=== PATIENT | female | born 1950 | race Caucasian/White ===

== ENCOUNTER 2023-05-29 09:23 | Outpatient (OUT) | payer MEDICARE, SELFPAY ==
[2023-05-29 10:13] LABS: Basophils Absolute Auto 0.1 10^3/uL (0.0-0.1); Basophils Percent Auto 0.8 % (0.2-2.0); Eosinophils Absolute Auto 0.1 10^3/uL (0.0-0.7); Eosinophils Percent Auto 1.3 % (0.9-7.0); Hematocrit 42.4 % (36.0-48.0); Hemoglobin 13.8 g/dL (12.0-16.0); Immature Granulocytes Abs Auto 0.02 10^3/uL (0.00-0.03); Immature Granulocytes Pct Auto 0.2 % (0.0-0.5); Lymphocytes Absolute Auto 4.3 10^3/uL (1.2-3.8); Lymphocytes Percent Auto 41.5 % (20.5-60.0); Mean Corpuscular HGB Conc 32.5 g/dL (29.9-35.2); Mean Corpuscular Hemoglobin 30.3 pg (26.7-34.0); Mean Corpuscular Volume 93.2 fL (81.0-99.0); Mean Platelet Volume 10.1 fL (9.5-13.5); Monocytes Absolute Auto 0.5 10^3/uL (0.3-0.8); Monocytes Percent Auto 4.3 % (1.7-12.0); Neutrophils Absolute Auto 5.4 10^3/uL (1.4-6.5); Neutrophils Percent Auto 51.9 % (43.0-75.0); Platelet Count 304 10^3/uL (150-450); Red Blood Count 4.55 10^6/uL (4.20-5.40); Red Cell Distribution Width 11.5 % (11.0-15.0); White Blood Count 10.4 10^3/uL (4.0-11.0)
[2023-05-29 10:57] LABS: Estimated Average Glucose 120 mg/dL; Glycohemoglobin A1C 5.8 % (4.5-6.2)
[2023-05-29 11:17] LABS: Alanine Aminotransferase 44 U/L (14-59); Alkaline Phosphatase 92 U/L (46-116); Anion Gap 11.3; Aspartate Amino Transferase 22 U/L (15-37); BUN Creatinine Ratio 17.1; Bilirubin Total 0.5 mg/dL (0.2-1.0); Carbon Dioxide 31.5 mmol/L (21.0-32.0); Chloride 104 mmol/L (98-107); Chol HDL Ratio 2.4; Cholesterol 166 mg/dL (<=200); Estimated GFR (African America >60 (>=60); Estimated GFR (Non-African Ame 52 (>=60); Free T3 2.66 pg/mL (2.18-3.98); Globulin 3.9 g/dL; Glucose 105 mg/dL (74-106); HDL Cholesterol 69 mg/dL (40-60); Potassium 3.8 mmol/L (3.5-5.1); Sodium 143 mmol/L (136-145); Thyroid Stimulating Hormone 1.199 uIU/mL (0.358-3.740); Total Protein 7.9 g/dL (6.4-8.2); Triglycerides 96 mg/dL (<=150); VLDL CHOLESTEROL 19.2 mg/dL
[2023-05-30 13:08] LABS: Insulin 12.6 uIU/mL (2.6-24.9)
== END 2023-05-29 09:24 | disposition home or self-care (01) ==
LOC: LAB 09:45
PROVIDERS: PCP Nurse Practitioner Family; Visit Provider Nurse Practitioner Family
DX: I10 Essential (primary) hypertension (principal)
CPT/HCPCS: 36415; 80053; 80061; 82306; 83036; 83525; 84436; 84443; 84481; 85025

== ENCOUNTER 2024-04-04 07:22 | Outpatient (OUT) | payer MEDICARE, SELFPAY ==
--- NOTE | 2024-04-04 07:26 | MM_ITS ---
Patient Name: ALAN RAO MR#: [id number] : 1950 Exam Date: 04/04/2024 Ordering Doctor: KEN HOFF CNP RADIOLOGY REPORT PROCEDURE: MM TOMOSYNTHESIS SCREENING BI COMPARISON: MG MAMM SCREEN GASTON W CAD, 09/25/2020. MG MAMM SCREEN 3D GASTON CAD, 01/27/2022. INDICATIONS: screening Calculator Name NCI Breast Cancer Risk Assessment Tool 5 Year Breast Cancer Risk 2.30% Lifetime Breast Cancer Risk 6.30% Personal Breast Cancer No Personal Ovarian Cancer No Treatments None Family Cancers Grandfather-maternal with lung & esophageal cancer at age 40. LOCATION: [facility] BREAST COMPOSITION: The breasts are heterogeneously dense,which may obscure small masses. FINDINGS: DIAGNOSTIC CATEGORY 2--BENIGN FINDING. NO CHANGE FROM COMPARISON. Scattered benign-appearing nodules are present. Scattered benign-appearing calcifications are present. Scattered benign-appearing lymph nodes are present. RIGHT BREAST: No significant suspicious finding. LEFT BREAST: No significant suspicious finding. RECOMMENDATIONS: ROUTINE MAMMOGRAM AND CLINICAL EVALUATION IN 12 MONTHS. PLEASE NOTE: A NORMAL MAMMOGRAM DOES NOT EXCLUDE THE POSSIBILITY OF BREAST CANCER. A CLINICALLY SUSPICIOUS PALPABLE LUMP SHOULD BE BIOPSIED. Dictated by: Erick Dominguez MD on 04/04/2024 at 08:43 Approved by: Erick Dominguez MD on 04/04/2024 at 08:45
== END 2024-04-04 07:23 | disposition home or self-care (01) ==
LOC: MAMMO 07:22
PROVIDERS: PCP Nurse Practitioner Family; Visit Provider Nurse Practitioner Family
DX: Z12.31 Encounter for screening mammogram for malignant neoplasm of breast (principal); Z80.1 Family history of malignant neoplasm of trachea, bronchus and lung; Z80.0 Family history of malignant neoplasm of digestive organs
CPT/HCPCS: 77063; 77067

== ENCOUNTER 2024-06-14 08:40 | Outpatient (OUT) | payer MEDICARE, SELFPAY ==
--- OUTSIDE RECORDS SUMMARY | 2024-06-14 09:02 | XMS_ITS | CCD ---
Author Organization [facility] Care Team Providers Care Chief Pharmacist Name Role Phone DR JOANNE WOO Attending Unavailable AMNA, DR RUBIO Consulting Unavailable DR JOANNE WOO Primary Care Unavailable DR JOANNE WOO Admitting Unavailable MARIO, DR RIOS Daily Consulting Unavailable KEN HOFF Attending Unavailable KEN HOFF Consulting Unavailable AMNA, DR RUBIO Primary Care Unavailable KEN HOFF Admitting Unavailable KAREEM BAUTISTA Attending Unavailable Problems Active Problems Problem Classification Problem Date Documented Da te Episodic/Chronic Diabetes mellitus without complication (1 source) Other abnormal glucose; Translations: [OTHER ABNORMAL GLUCOSE] Onset: 07-02-2022 Episodic Disorders of lipid metabolism (2 sources) Mixed hyperlipidemia; Translations: [Hyperlipidemia, unspecified] Onset: 07-02-2022 Chronic Essential hypertension (4 sources) Essential (primary) hypertension; Translations: [ESSENTIAL PRIMARY HYPERTENSION] Onset: 2022 Chronic Past or Other Problems Problem Classification Problem Date Documented Da te Episodic/Chronic Other screening for suspected conditions (not mental disorders or infectious disease) (4 sources) Encounter for screening mammogram for malignant neoplasm of breast; Translations: [ENC SCR MAMMO MALIG NEOPLASM BREAST] Onset: 01-27-2022 Episodic Residual codes; unclassified (1 source) Family history of malignant neoplasm of trachea, bronchus and lung; Translations: [FAM HX MALIG NEOPLSM TRACH BRON LNG] Onset: 01-29-2022 Episodic Residual codes; unclassified (1 source) Family history of malignant neoplasm of digestive organs; Translations: [FAM HX MALIG NEOPLASM DIGESTIV ORGN] Onset: 01-29-2022 Episodic Results Test Name Value Interpretation Reference Range Facility CBC AUTO DIFFon 2022 BASO # 0.1 103/ul Normal 0.0-0.1 [facility] Comment on above: Performed By: #### C BC #### [facility] [address] [place] [address] Dr. Jen Spear Basophils/100 WBC (Bld) 0.9 % Normal 0.2-2.0 [facility] Comment on above: Performed By: #### C BC #### [facility] [address] [place] [address] Dr. Jen Spear EO # 0.1 103/ul Normal 0.0-0.7 [facility] Comment on above: Performed By: #### C BC #### [facility] [address] [place] [address] Dr. Jen Spear Eosinophils/100 WBC (Bld) 1.3 % Normal 0.9-7.0 [facility] Comment on above: Performed By: #### C BC #### [facility] [address] [place] [address] Dr. Jen Spear Erythrocyte distribution width (RBC) [Ratio] 11.6 % Normal 11.0-15.0 [facility] Comment on above: Performed By: #### C BC #### [facility] [address] [place] [address] Dr. Jen Spear Hematocrit (Bld) [Volume fraction] 42.0 % Normal 36.0-48.0 [facility] Comment on above: Performed By: #### C BC #### [facility] [address] [place] [address] Dr. Jen Spear Hemoglobin (Bld) [Mass/Vol] 14.2 g/dL Normal 12.0-16.0 [facility] Comment on above: Performed By: #### C BC #### [facility] [address] [place] [address] Dr. Jen Spear IG # 0.03 10e3/ul Normal 0.00-0.03 [facility] Comment on above: Performed By: #### C BC #### [facility] [address] [place] [address] Dr. Jen Spear IG % 0.3 % Normal 0.0-0.5 [facility] Comment on above: Performed By: #### C BC #### [facility] [address] [place] [address] Dr. Jen Spear LYMPH # 4.1 103/ul Critically high 1.2-3.[address] [facility] Comment on above: Performed By: #### C BC #### [facility] [address] [place] [address] Dr. Jen Spear Lymphocytes/100 WBC (Bld) 44.7 % Normal 20.5-60.0 [facility] Comment on above: Performed By: #### C BC #### [facility] [address] [place] [address] Dr. Jen Spear MANUAL DIFF REQ NO Normal [facility] Comment on above: Performed By: #### C BC #### [facility] [address] [place] [address] Dr. Jen Spear MCH (RBC) [Entitic mass] 31.5 pg Normal 26.7-34.0 [facility] Comment on above: Performed By: #### C BC #### [facility] [address] [place] [address] Dr. Jen Spear MCHC (RBC) [Mass/Vol] 33.8 g/dL Normal 29.9-35.2 [facility] Comment on above: Performed By: #### C BC #### [facility] [address] [place] [address] Dr. Jen Spear MCV (RBC) [Entitic vol] 93.1 fL Normal 81.0-99.0 [facility] Comment on above: Performed By: #### C BC #### [facility] [address] [place] [address] Dr. Jen Spear MONO # 0.5 103/ul Normal 0.3-0.8 [facility] Comment on above: Performed By: #### C BC #### [facility] [address] [place] [address] Dr. Jen Spear Monocytes/100 WBC (Bld) 5.3 % Normal 1.7-12.0 [facility] Comment on above: Performed By: #### C BC #### [facility] [address] [place] [address] Dr. Jen Spear NEUT # 4.4 103/ul Normal 1.4-6.5 [facility] Comment on above: Performed By: #### C BC #### [facility] [address] [place] [address] Dr. Jen Spear Neutrophils/100 WBC (Bld) 47.5 % Normal 43.0-75.0 [facility] Comment on above: Performed By: #### C BC #### [facility] [address] [place] [address] Dr. Jen Spear Platelet mean volume (Bld) [Entitic vol] 10.2 fL Normal 9.5-13.5 [facility] Comment on above: Performed By: #### C BC #### [facility] [address] [place] [address] Dr. Jen Spear PLT 280 103/ul Normal 150-450 [facility] Comment on above: Performed By: #### C BC #### [facility] [address] [place] [address] Dr. Jen Spear RBC 4.51 106/ul Normal 4.20-5.40 [facility] Comment on above: Performed By: #### C BC #### [facility] [address] [place] [address] Dr. Jen Spear WBC 9.2 103/ul Normal 4.0-11.0 [facility] Comment on above: Performed By: #### C BC #### [facility] [address] [place] [address] Dr. Jen Spear GLYCOHEMOGLOBIN A1Con 2021 ADA RECOMMENDATION SEE BELOW Normal [facility] Comment on above: Result Comment: ADA RECOMMENDED LIMIT 4.0 - 6.0 ADA THERAPEUTIC TARGET < 7.0 ACTION SUGGESTED > 7.0 Performed By: #### A 1C #### [facility] [address] [place] [address] Dr. Jen Spear Glucose [Mass/Vol] 123 mg/dL Normal [facility] Comment on above: Performed By: #### A 1C #### [facility] [address] [place] [address] Dr. Jen Spear HbA1c (Bld) [Mass fraction] 5.9 % Normal 4.5-6.2 [facility] Comment on above: Performed By: #### A 1C #### [facility] [address] [address] [address] Jen Spear LIPID PROFILEon 2022 CHOL-HDL RATIO NORM SEE BELOW Normal [facility] Comment on above: Result Comment: 3.3 - 4.4 LOW RISK 4.4 - 7.1 AVERAGE RISK 7.1 - 11.0 MODERATE RISK >11.0 HIGH RISK Performed By: #### L IPID, CMP #### [facility] [address] [address] [address] Jen Spear Cholesterol [Mass/Vol] 182 mg/dL Normal <=200 [facility] Comment on above: Performed By: #### L IPID, CMP #### [facility] [address] [address] [address] Jen Spear Cholesterol in HDL [Mass/Vol] 64 mg/dL Critically high 40-60 [facility] Comment on above: Performed By: #### L IPID, CMP #### [facility] [address] [address] [address] Jen Spear Cholesterol in LDL [Mass/Vol] 89.4 mg/dL Normal [facility] Comment on above: Performed By: #### L IPID, CMP #### [facility] [address] [address] [address] Jne Spear Cholesterol.total/Cho lesterol in HDL [Mass ratio] 2.8 {ratio} Normal [facility] Comment on above: Performed By: #### L IPID, CMP #### [facility] [address] [address] [address] Jen Spear HDL NORMAL > or = 60 mg/dl - LO W CARDIOVASCULAR RISK <40 mg/dl - HIGH CARDIOVASCULAR RISK Normal [facility] Comment on above: Performed By: #### L IPID, CMP #### [facility] [address] [address] [address] Jen Spear LDL CALC NORMAL SEE BELOW Normal [facility] Comment on above: Result Comment: <100 mg/dl OPTIMAL 100 - 129 mg/dl NEAR OR ABOVE OPTIMAL 130 - 159 mg/dl BORDERLINE HIGH 160 - 189 mg/dl HIGH >190 mg/dl VERY HIGH Performed By: #### L IPID, CMP #### [facility] [address] [place] [address] Dr. Jen Spear Triglyceride [Mass/Vol] 143 mg/dL Normal <=150 [facility] Comment on above: Performed By: #### L IPID, CMP #### [facility] [address] [place] [address] Dr. Jen Spear VLDL CALC 28.6 mg/dL Normal [facility] Comment on above: Performed By: #### L IPID, CMP #### [facility] [address] [place] [address] Dr. Jen Spear PROF 14(COMP METB)on 022 Albumin [Mass/Vol] 3.8 g/dL Normal 3.4-5.0 [facility] Comment on above: Performed By: #### L IPID, CMP #### [facility] [address] [place] [address] Dr. Jen Spear Albumin/Globulin [Mass ratio] 1.1 {ratio} Normal [facility] Comment on above: Performed By: #### L IPID, CMP #### [facility] [address] [place] [address] Dr. Jen Spear ALP [Catalytic activity/Vol] 90 U/L Normal 46-116 [facility] Comment on above: Performed By: #### L IPID, CMP #### [facility] [address] [place] [address] Dr. Jen Spear ALT [Catalytic activity/Vol] 37 U/L Normal 14-59 [facility] Comment on above: Performed By: #### L IPID, CMP #### [facility] [address] [place] [address] Dr. Jen Spear Anion gap [Moles/Vol] 9.8 mmol/L Normal [facility] Comment on above: Performed By: #### L IPID, CMP #### [facility] [address] [address] [address] Jen Spear AST [Catalytic activity/Vol] 23 U/L Normal 15-37 [facility] Comment on above: Performed By: #### L IPID, CMP #### [facility] [address] [address] [address] Jen Spear Bilirubin [Mass/Vol] 0.8 mg/dL Normal 0.2-1.0 [facility] Comment on above: Performed By: #### L IPID, CMP #### [facility] [address] [address] [address] Jen Spear Calcium [Mass/Vol] 9.3 mg/dL Normal 8.5-10.1 [facility] Comment on above: Performed By: #### L IPID, CMP #### [facility] [address] [place] [address] Dr. Jen Spear Chloride [Moles/Vol] 104 mmol/L Normal 98-107 [facility] Comment on above: Performed By: #### L IPID, CMP #### [facility] [address] [address] [address] Jen Spear CO2 [Moles/Vol] 31.0 mmol/L Normal 21.0-32.0 [facility] Comment on above: Performed By: #### L IPID, CMP #### [facility] [address] [place] [address] Dr. Jen Spear Creatinine [Mass/Vol] 1.12 mg/dL Critically high 0.55-1.02 [facility] Comment on above: Performed By: #### L IPID, CMP #### [facility] [address] [place] [address] Dr. Jen Spear EGFR-AF S[place]APOREAN 58 mL/min/1.73m2 Critically low >=60 [facility] Comment on above: Performed By: #### L IPID, CMP #### [facility] [address] [place] [address] Dr. Jen Spear EGFR-NON AF [place] 48 mL/min/1.73m2 Critically low >=60 [facility] Comment on above: Performed By: #### L IPID, CMP #### [facility] [address] [address] [address] Jen Spear Globulin (S) [Mass/Vol] 3.6 g/dL Normal [facility] Comment on above: Performed By: #### L IPID, CMP #### [facility] [address] [address] [address] Jen Spear Glucose [Mass/Vol] 102 mg/dL Normal 74-106 [facility] Comment on above: Performed By: #### L IPID, CMP #### [facility] [address] [address] [address] Jen Spear Potassium [Moles/Vol] 3.8 mmol/L Normal 3.5-5.1 [facility] Comment on above: Performed By: #### L IPID, CMP #### [facility] [address] [place] [address] Dr. Jen Spear Protein [Mass/Vol] 7.4 g/dL Normal 6.4-8.2 [facility] Comment on above: Performed By: #### L IPID, CMP #### [facility] [address] [address] [address] Jen Spear Sodium [Moles/Vol] 141 mmol/L Normal 136-145 [facility] Comment on above: Performed By: #### L IPID, CMP #### [facility] [address] [address] [address] Jen Spear Urea nitrogen [Mass/Vol] 18.0 mg/dL Normal 7.0-18.0 [facility] Comment on above: Performed By: #### L IPID, CMP #### [facility] [address] [address] [address] Jen Spear Urea nitrogen/Creatinine [Mass ratio] 16.1 mg/mg Normal [facility] Comment on above: Performed By: #### L IPID, CMP #### [facility] [address] [address] [address] Jen Spear MG MAMM SCREEN 3D GASTON CADon 01-27-2022 MG MAMM SCREEN 3D GASTON CAD Patient: NOFFSINGER, ALAN A. Exam Date: 01/27/2022 : 1950 Gender:F Ordering : DR JOANNE WOO . Admission #: [id number] Family : Order #: [id number] CLICK HERE TO VIEW EXAM RADIOLOGY REPORT PROCEDURE: MAMMOGRAM SCREENING 3D BILATERAL CAD COMPARISON: MG MAMM SCREEN GASTON W CAD, 09/21/2019. MG MAMM RT DIAG W CAD, 01/25/2019. MG MAMM GASTON SCRN W CAD DIG, 02/05/2010. MG MAMM SCREEN GASTON W CAD, 09/25/2020. INDICATIONS: Screening mammography Calculator Name NCI Breast Cancer Risk Assessment Tool 5 Year Breast Cancer Risk 2.30% Lifetime Breast Cancer Risk 6.90% Personal Breast Cancer No Personal Ovarian Cancer No Treatments None Family Cancers Grandfather-maternal with lung AND esophageal cancer at age 40. LOCATION: [facility] BREAST COMPOSITION: Heterogeneously dense,which may obscure small masses. FINDINGS: DIAGNOSTIC CATEGORY 2--BENIGN FINDING: RIGHT BREAST: No significant suspicious finding. Scattered benign-appearing calcifications are present. Scattered benign-appearing lymph nodes are present. No significant change has occurred. LEFT BREAST: No significant suspicious finding. Scattered benign-appearing calcifications are present. Scattered benign-appearing lymph nodes are present. No significant change has occurred. RECOMMENDATIONS: ROUTINE MAMMOGRAM AND CLINICAL EVALUATION IN 12 MONTHS. PLEASE NOTE: A NORMAL MAMMOGRAM DOES NOT EXCLUDE THE POSSIBILITY OF BREAST CANCER. A CLINICALLY SUSPICIOUS PALPABLE LUMP SHOULD BE BIOPSIED. Dictated by: Rios Snow M.D. on 01/28/2022 at 13:34 Approved by: Rios Snow M.D. on 01/28/2022 at 13:38 Normal [facility] Encounters Encounter Date Encounter Type Care Provider Facility Start: 04-30-2024 End: 04-30-2024 ambulatory KAREEM BAUTISTA Not Available Start: 2022 End: 07-02-2022 ambulatory EKN HOFF Facility:[facility] Start: 01-27-2022 End: 01-28-[address] JOANNE WOO Facility:[facility] Payers Date Payer Category Payer Medicare [id number] 1950 Unknown [id number] 1950 Unknown [id number] 1950 Unknown [id number] Summary Purpose Family History No Family History Records FoundNo Family History Records Found Advance Directives No Advanced Directives Records FoundNo Advanced Directives Records Found Additional Source Comments INFORMATION SOURCE (unrecogn ized section and content) DATE CREATED AUTHOR 07/13/2022 [facility] DATE CREATED AUTHOR AUTHOR'S HALEIGH BOWEN 05/03/2024 [facility] EPIC FOR RECORDS PERTAINING TO PATIENTS WHO ARE OR HAVE BEEN ENROLLED IN A CHEMICAL DEPENDENCY/SUBSTANCEABUSE PROGRAM, SOME INFORMATION MAY BE OMITTED. This clinical summary was aggregated from multiple sources. Caution should be exercised in using it in the provision of clinical care. This summary normalizes information from multiple sources, and as a consequence, information in this document may materially change the coding, format and clinical context of patient data. In addition, data may be omitted in some cases. CLINICAL DECISIONS SHOULD BE BASED ON THE PRIMARY CLINICAL RECORDS. [facility] [employer] provides no warranty or guarantee of the accuracy or completeness of information in this document.
[2024-06-14 09:06] LABS: Basophils Absolute Auto 0.1 10^3/uL (0.0-0.1); Basophils Percent Auto 0.8 % (0.2-2.0); Eosinophils Absolute Auto 0.2 10^3/uL (0.0-0.7); Hematocrit 43.3 % (36.0-48.0); Hemoglobin 14.6 g/dL (12.0-16.0); Immature Granulocytes Abs Auto 0.01 10^3/uL (0.00-0.03); Immature Granulocytes Pct Auto 0.1 % (0.0-0.5); Lymphocytes Absolute Auto 3.4 10^3/uL (1.2-3.8); Mean Corpuscular HGB Conc 33.7 g/dL (29.9-35.2); Mean Corpuscular Hemoglobin 31.2 pg (26.7-34.0); Mean Corpuscular Volume 92.5 fL (81.0-99.0); Mean Platelet Volume 10.8 fL (9.5-13.5); Monocytes Absolute Auto 0.4 10^3/uL (0.3-0.8); Monocytes Percent Auto 5.2 % (1.7-12.0); Neutrophils Absolute Auto 3.4 10^3/uL (1.4-6.5); Neutrophils Percent Auto 45.9 % (43.0-75.0); Platelet Count 273 10^3/uL (150-450); Red Blood Count 4.68 10^6/uL (4.20-5.40); Red Cell Distribution Width 11.8 % (11.0-15.0); White Blood Count 7.5 10^3/uL (4.0-11.0)
[2024-06-14 09:56] LABS: Estimated Average Glucose 117 mg/dL; Glycohemoglobin A1C 5.7 % (4.5-6.2)
[2024-06-14 10:49] LABS: Alanine Aminotransferase 48 U/L (14-59); Albumin Globulin Ratio 1.1; Albumin Level 3.9 g/dL (3.4-5.0); Alkaline Phosphatase 94 U/L (46-116); Anion Gap 14.9; Aspartate Amino Transferase 29 U/L (15-37); BUN Creatinine Ratio 15.7; Bilirubin Total 1.1 mg/dL (0.2-1.0); Calcium 9.6 mg/dL (8.5-10.1); Carbon Dioxide 28.8 mmol/L (21.0-32.0); Chloride 103 mmol/L (98-107); Chol HDL Ratio 2.7; Cholesterol 173 mg/dL (<=200); Estimated GFR (African America >60 (>=60); Estimated GFR (Non-African Ame 53 (>=60); Free T3 3.11 pg/mL (2.18-3.98); Globulin 3.5 g/dL; Glucose 103 mg/dL (74-106); HDL Cholesterol 63 mg/dL (40-60); Potassium 3.7 mmol/L (3.5-5.1); Sodium 143 mmol/L (136-145); Thyroid Stimulating Hormone 2.171 uIU/mL (0.358-3.740); Total Protein 7.4 g/dL (6.4-8.2); Triglycerides 153 mg/dL (<=150); VLDL CHOLESTEROL 30.6 mg/dL
== END 2024-06-14 08:41 | disposition home or self-care (01) ==
LOC: LAB 08:43
PROVIDERS: PCP Nurse Practitioner Family; Visit Provider Nurse Practitioner Family
DX: I10 Essential (primary) hypertension (principal)
CPT/HCPCS: 36415; 80053; 80061; 83036; 83525; 84436; 84443; 84481; 85025

== ENCOUNTER 2025-05-30 14:54 | Outpatient (OUT) | payer MEDICARE, SELFPAY ==
--- OUTSIDE RECORDS SUMMARY | 2025-04-04 07:36 | XMS_ITS ---
Author Organization [facility] [place] Address [address] [place] [address] Care Team Providers Care Shade Matcher Name Role Phone Minnie Riojas Primary Care Provider [phone] Efrain Aguilar Unavailable [phone] REASON FOR VISIT yearly mammogram Encounters Encounter Location Date Provider Diagnosis [facility] [address] [place] [address] 04/04/2025 Efrain Aguilar Screening for breast cancer Z12.31 Assessments Encounter Date Diagnosis (ICD Code) Assessment Notes Treatment Notes Treatment Clinical Notes Section Notes 04/04/2025 Screening for breast cancer (ICD-10 - Z12.31) Plan Of Treatment Pending Test Test Name Order Date BI MAMMOGRAM SCREENING TOMOSYNTHESIS GASTON ATERAL 04/04/2025 Progress Notes * Belia TOSCANO ADOB:1949 (74 yo F)Acc No.[id number]:04/04/2025 Patient: Belia FLORES :1950 A ge:74 Y S ex:Female Address:[address] [place] [id number] Subjective: * Chief Complaints: * Y early mammogram * Medical History: * Surgical History: * Hospitalization/Major Diagno stic Procedure: * Medications: Objective: * Vitals: * Physical Examination: Assessment: * Assessment: 1. S creening for breast cancer - Z12.31 (Primary) Plan: * Treatment: * Procedure Codes: * true * Date: Generated for Madelaine qureshi/Kimberly/Ben on: 0 05/30/2025 02:57 PM EDT
--- OUTSIDE RECORDS SUMMARY | 2025-05-19 04:10 | XMS_ITS ---
Author Organization [facility] [place] Address [address] [place] [address] Care Team Providers Care Valve Repairer Name Role Phone Minnie Riojas Primary Care Provider REASON FOR VISIT needs seen- mailbox full Encounters Encounter Location Date Provider Diagnosis [facility] [address] [facility] [place] [address] 05/19/2025 Minnie Riojas Plan Of Treatment No Information Progress Notes * Belia TOSCANO ADOB:1949 (74 yo F)Acc No.[id number]:05/19/2025 Patient: Belia FLORES :1950 A ge:74 Y S ex:Female Address:[facility] [place] [address] * true * Date: Generated for Madelaine qureshi/Kimberly/eTransmitting on: 0 05/30/2025 02:58 PM EDT
--- OUTSIDE RECORDS SUMMARY | 2025-05-30 06:00 | XMS_ITS ---
Author Organization [facility] [place] Address [address] [place] [address] Care Team Providers Care Box Finisher Name Role Phone Minnie Riojas Primary Care Provider [phone] Allergies No Known Allergies REASON FOR VISIT yearly wellness exam Medications Medication SIG (Take, Route, Frequency, Duration) Notes Start Date End Date Status Simvastatin 10 MG TAKE 1 TABLET BY MOUTH EVERY DAY FOR 90 DAYS for 90 days Active ZyrTEC Allergy 10 MG 1 tablet Orally Onc e a day Active hydroCHLOROthiazide 25 MG TAKE 1 TABLET BY MOUTH EVERY DAY IN THE MORNING FOR 90 DAYS for 90 Active Ehhhb-[id number] Ethyl Esters 1 GM TAKE 1 CA PSULE BY MOUTH TWICE A DAY for 90 days Active Ramipril 10 MG TAKE 1 CAPSULE BY MOUTH EVERY DAY for 90 Active Calcium + Vitamin D3 600-5 MG-MCG 2 tablet with a meal Orally Once a day Active Accu-Chek Mary Plus - USE TO TEST BLOOD SUGAR DAILY for 90 Active Aspirin Adult Low Dose 81 MG 1 tablet Or ally Once a day Active Social History Tobacco Use: Social History Observation Description Date Details (start date - stop date) Never Smoker NA - NA Tobacco Use/Smoking Question Answer Notes Patient is a nonsmoker AUDIT-C (Standard) Question Answer Notes Did you have a drink containing alcohol in the p ast year? No Points 0 Interpretation Negative Problems Problem Type SNOMED Code ICD Code Onset Dates Problem Status W/U Status Risk Notes Problem Chronic kidney disease stage 3A (disorder) (697524007) Chronic kidney disease, stage 3a (N18.31) Active confirmed Vital Signs Weight 196.2 lbs 05/30/2025 Height 65 in 05/30/2025 Blood pressure systolic 136 mm Hg 05/30/20 25 Blood pressure diastolic 80 mm Hg 025 BMI 32.65 kg/m2 05/30/2025 Encounters Encounter Location Date Provider Diagnosis [facility] [address] [place] [address] 05/30/2025 Minnie Riojas Chronic kidney disease, stage 3a N18.31 ; Essential (primary) hypertension I10 and Osteopenia M85.80 Assessments Encounter Date Diagnosis (ICD Code) Assessment Notes Treatment Notes Treatment Clinical Notes Section Notes 05/30/2025 Chronic kidney disease, stage 3a (ICD-10 - N18.31) continue monitor labs BP control 05/30/2025 Essential (primary) hypertension (ICD-10 - I10) BP ok, continue meds 05/30/2025 Osteopenia (ICD-10 - M85.80) Plan Of Treatment Treatment Notes Assessment Notes Chronic kidney disease, stage 3a continue monitor labs BP control Essential (primary) hypertension BP ok, continue meds Pending Test Test Name Order Date HEMOGLOBIN A1C (GLYCO) 05/30/2025 IRON, TOTAL 05/30/2025 LIPID PANEL (CHOL/TRIG/HDL/LDL) 05/30/20 25 VITAMIN D, 25 LEVEL (TOTAL) 05/30/2025 Insulin Level 05/30/2025 XR DEXA BONE DENSITY 05/30/2025 THYROID PANEL (T4/TSH/FREE T3) 5 CMP (COMP MET SANCHEZ) w/eGFR CKD-EPI 2024 CBC WITH DIFF 05/30/2025 Next Appt Details Follow Up: 1 Year,prn, Reaso n: Progress Notes * Belia TOSCANO ADOB:1949 (74 yo F)Acc No.[id number]:05/30/2025 Progress Note Patient: Belia FLORES Provider: Tracy Riojas ([facility] JASON :1950 A ge:74 Y S ex:Female Date:05/30/2025 Address:[address] [place] [address] [id number] Check In:09:51 AM ESTCheck O ut:10:16 AM EST Subjective: * Chief Complaints: * 1 . Yearly wellness exam. * HPI: G eneral: doing well feels slowed a little lives with daughter and son and grandson, almost 12 stool test, insurance co sent labs and order dexa mammogram no concerns. D epression Screening: PHQ-2 (2015 Edition) L ittle interest or pleasure in doing things??Not at all F eeling down, depressed, or hopeless? N ot at all T otal Score 0 * ROS: G eneral/Constitutional: Fever d enies. H eadache d enies. W eight loss?denies. O phthalmologic: Discharge d enies. E ye Pain d enies. I tching and redness d enies. E NT: Nasal discharge d enies. N kristi congestion d enies.?Sore throat d enies. C ardiovascular: Chest tightness/ heavy pressure d enies. R apid heart rate d enies. S welling of extremities d enies. C hest pain d enies. ? R espiratory: Productive cough d enies. C hest pain d enies. C ough d enies. S hortness of breath d enies. W heezing d enies. ? G astrointestinal: Abdominal pain d enies. C onstipation d enies. D ecreased appetite d enies. D iarrhea d enies. N ausea d enies. V omiting?denies. G enitourinary: Urinary incontinence d enies. P ainful urination d enies. M usculoskeletal: Back pain d enies. N tierra pain d enies. M uscle aches d enies. S kin: Rash d enies. S kin lesion(s) d enies. ? * Active Problem List I10 Essential (primary) hypertension Modified On:05/15/2023/U Status:confirmed E78.5 Hyperlipidemia, unsp ecified Modified On:05/15/2023U Status:confirmed N18.31 Chronic kidney disea se, stage 3a Modified On:05/30/2025U Status:confirmed * Medical History: O steopenia, Hyperglycemia, Arthritis, Lump or mass in breast, Female stress incontinence, Hypertension, Hyperlipidemia. * Surgical History: H ysterectomy , Ureteral Tube- took tissue flap off . * Family History: F ather: , Alzheimers, enlarged heart. M other: , congestive heart failure, diagnosed with Unspecified heart disease, Diabetes mellitus without mention of complication, type II or unspecified type, not stated as uncontrolled. S ister(s): alive, Scoliosis- childhood.?Daughter(s): alive, hypoglycemia. 1 sister(s) . 1 daughter(s) - healthy. . * Social History: T obacco Use: T obacco Use/Smoking P atient is a n onsmoker D rug/Alcohol: A BALJINDER-C (Standard) D id you have a drink containing alcohol in the past year? N o P oints 0 I nterpretation N egative * Medications: T aking Accu-Chek Mary Plus(Glucose Blood) - Strip USE TO TEST BLOOD SUGAR DAILY , Taking Aspirin Adult Low Dose(Aspirin) 81 MG Tablet Delayed Release 1 tablet Orally Once a day , Taking Calcium + Vitamin D3(Calcium Carb-Cholecalciferol) 600-5 MG- MCG Tablet 2 tablet with a meal Orally Once a day , Taking hydroCHLOROthiazide 25 MG Tablet TAKE 1 TABLET BY MOUTH EVERY DAY IN THE MORNING FOR 90 DAYS , Taking Edekg-9-oulv Ethyl Esters 1 GM Capsule TAKE 1 CAPSULE BY MOUTH TWICE A DAY , Taking Ramipril 10 MG Capsule TAKE 1 CAPSULE BY MOUTH EVERY DAY , Taking Simvastatin 10 MG Tablet TAKE 1 TABLET BY MOUTH EVERY DAY FOR 90 DAYS , Taking ZyrTEC Allergy(Cetirizine HCl) 10 MG Tablet 1 tablet Orally Once a day , Medication List reviewed and reconciled with the patient * Allergies: N .K.D.A. Objective: * Vitals: W t:196.2lbs, Ht: 65 in, BP:136/80mm Hg, BMI:32.65Index, Ht-cm: 165.1 cm, Wt-k kg. * Examination: G eneral Examinations: GENERAL APPEARANCE: a lert and oriented, i n no acute distress. EYES: c onjunctiva normal, sclera non-icteric. EARS: e xternal auditory canals are patent. Tympanic membranes are pearly kim and mobile. NOSE: n ormal external appearance. LUNGS: c lear to auscultation bilaterally. CARDIO: r egular rate and rhythm, S1, S2 normal. ABDOMEN: s oft, nontender. MUSCULOSKELETAL: G ait and station normal. SKIN: w arm and dry. Assessment: * Assessment: 1. E ssential (primary) hypertension - I10 (Primary) 2 . C hronic kidney disease, stage 3a - N18.31 3 . O steopenia - M85.80 Plan: * Treatment: 2. C hronic kidney disease, stage 3a Notes: continue monitor labs BP control 3. O steopenia I maging: XR DEXA BONE DENSITY * Preventive Medicine: Screenings/Counseling: B SC ACTION PLAN Above Normal BMI Follow-up D ietary management education, guidance, and counseling * Follow Up: 1 Year,prn * * Sign off status: Completed Visit Status: C HK (Check Out) true * Provider: Tracy Riojas ([facility]), ACTIVITIES MANAGER Date: 05/30/2025 Generated for Madelaine qureshi/Kimberly/eTransmitting on: 05/30/2025 02:57 PM EDT History and Physical Notes * HPI (History of Present Illness) Category Sub-Category Detail Notes Category Not es General doing well feels slowed a little lives with daughter and son and grandson, almost 12 stool test, insurance co sent labs BH and order dexa mammogram no concerns Depression Screening PHQ-2 (2015 Edition) Little interest or pleasure in doing things?: Not at all Feeling down, depressed, or hopeless?: N ot at all Total Score: 0 Examination Category Sub-Category Detail Notes Category Not es General Examinations GENERAL APPEARANCE: alert a nd oriented, in no acute distress EYES: conjunctiva normal, sclera non-icteric EARS: external auditory ca nals are patent. Tympanic membranes are pearly kim and mobile NOSE: normal external appe arance THROAT: CARDIO: regular rate and rhy thm, S1, S2 normal LUNGS: clear to auscultatio n bilaterally ABDOMEN: soft, nontender SKIN: warm and dry BACK: MUSCULOSKELETAL: Gait and station nor mal LYMPH NODES:
--- OUTSIDE RECORDS SUMMARY | 2025-05-30 14:57 | XMS_ITS | Patient Health Record ---
Author Organization [facility] in [place] Address [address] [place] [address] Care Team Providers Care Podiatric Aide Name Role Phone Beulah Minnie Primary Care Provider [phone] Efrain Aguilar Jaime [phone] Allergies No Known Allergies Results Component Value Reference Range Notes CBC AUTO DIFF Reviewed date:06/14/2024 11:39:35 AM Interpretation: Performing Lab: Notes/Report: [facility] , White Blood Count 7.5 4.0-11.0 10 3/uL Red Blood Count 4.68 4.20-5.40 10 6/uL Hemoglobin 14.6 12.0-16.0 g/dL Hematocrit 43.3 36.0-48.0 % Mean Corpuscular Volume 92.5 81.0-99.0 fL Mean Corpuscular Hemoglobin 31.2 26.7-34.0 pg Mean Corpuscular HGB Conc 33.7 29.9-35.2 g/dL Red Cell Distribution Width 11.8 11.0-15.0 % Platelet Count 273 150-450 10 3/uL Mean Platelet Volume 10.8 9.5-13.5 fL Neutrophils Percent Auto 45.9 43.0-75.0 % Lymphocytes Percent Auto 46.0 20.5-60.0 % Monocytes Percent Auto 5.2 1.7-12.0 % Eosinophils Percent Auto 2.0 0.9-7.0 % Basophils Percent Auto 0.8 0.2-2.0 % Immature Granulocytes Pct Auto 0.1 0.0-0.5 % Neutrophils Absolute Auto 3.4 1.4-6.5 10 3/uL Lymphocytes Absolute Auto 3.4 1.2-3.8 10 3/uL Monocytes Absolute Auto 0.4 0.3-0.8 10 3/uL Eosinophils Absolute Auto 0.2 0.0-0.7 10 3/uL Basophils Absolute Auto 0.1 0.0-0.1 10 3/uL Immature Granulocytes Abs Auto 0.01 0.00-0.03 10 3/uL Performing Lab: see note ML - [facility] FREE T3 Reviewed date:06/14/2024 11:39:35 AM Interpretation: Performing Lab: Notes/Report: [facility] , Free T3 3.11 2.18-3.98 pg/mL Performing Lab: see note - [facility] GLYCOHEMOGLOBIN A1C Reviewed date:06/14/2024 11:39:35 AM Interpretation: Performing Lab: Notes/Report: [facility] , Glycohemoglobin A1C 5.7 4.5-6.2 % ADA THERAPEUTIC TARGET < 7.0 > 7.0 ADA RECOMMENDED LIMIT 4.0 - 6.0 ACTION SUGGESTED Estimated Average Glucose 117 Performing Lab: see note ML - [facility] INSULIN Reviewed date:06/15/2024 11:58:34 AM Interpretation: Performing Lab: Notes/Report: [facility] , Insulin 12.0 2.6-24.9 uIU/mL Performed at: [facility]: Sree Radford PhD, Phone: [phone] [address] [place], [place] [id number] Performing Lab: see note - [facility] LB LIPID PROFILE Reviewed date:06/14/2024 11:39:35 AM Interpretation: Performing Lab: Notes/Report: [facility] , Triglycerides 153 <=150 mg/dL Cholesterol 173 <=200 mg/dL HDL Cholesterol 63 40-60 mg/dL > or =60 mg/dl - LOW CARDIOVASCULAR RISK <40 mg/dl - HIGH CARDIOVASCULAR RISK LDL Cholesterol Calculated 80.0 130-159 mg/dl BORDERLINE HIGH >190 mg/dl VERY HIGH 160-189 mg/dl HIGH <100 mg/dl OPTIMAL 100-129 mg/dl NEAR OR ABOVE OPTIMAL VLDL CHOLESTEROL 30.6 Chol HDL Ratio 2.7 4.4 - 7.1 AVERAGE RISK 7.1 - 11.0 MODERATE RISK 3.3 - 4.4 LOW RISK >11.0 HIGH RISK Performing Lab: see note ML - [facility] LB PROF 14(COMP METB) Reviewed date:06/14/2024 11:39:35 AM Interpretation: Performing Lab: Notes/Report: [facility] , Sodium 143 136-145 mmol/L Potassium 3.7 3.5-5.1 mmol/L Chloride 103 98-107 mmol/L Carbon Dioxide 28.8 21.0-32.0 mmol/L Anion Gap 14.9 Glucose 103 74-106 mg/dL Blood Urea Nitrogen 16.0 7.0-18.0 mg/dL Creatinine 1.02 0.55-1.02 mg/dL Estimated GFR ( Rashmi >60 >=60 Estimated GFR (Non- Key 53 >=60 BUN Creatinine Ratio 15.7 Calcium 9.6 8.5-10.1 mg/dL Bilirubin Total 1.1 0.2-1.0 mg/dL Aspartate Amino Transferase 29 15-37 U/L Alanine Aminotransferase 48 14-59 U/L Alkaline Phosphatase 94 46-116 U/L Total Protein 7.4 6.4-8.2 g/dL Albumin Level 3.9 3.4-5.0 g/dL Globulin 3.5 Albumin Globulin Ratio 1.1 Performing Lab: see note ML - [facility] LB T4 Reviewed date:06/14/2024 11:39:35 AM Interpretation: Performing Lab: Notes/Report: [facility] , T4 Thyroxine 6.50 4.80-13.90 ug/dL Performing Lab: see note ML - [facility] LB TSH Reviewed date:06/14/2024 11:39:35 AM Interpretation: Performing Lab: Notes/Report: [facility] , Thyroid Stimulating Hormone 2.171 0.358-3.740 u IU/mL Performing Lab: see note ML - [facility] LB Reason For Referral No Information Medications Medication SIG (Take, Route, Frequency, Duration) Notes Start Date End Date Status Simvastatin 10 MG TAKE 1 TABLET BY MOUTH EVERY DAY FOR 90 DAYS for 90 days Active ZyrTEC Allergy 10 MG 1 tablet Orally Onc e a day Active Calcium + Vitamin D3 600-5 MG-MCG 2 tablet with a meal Orally Once a day Active hydroCHLOROthiazide 25 MG TAKE 1 TABLET BY MOUTH EVERY DAY IN THE MORNING FOR 90 DAYS for 90 Active Uwolw-6-ypfn Ethyl Esters 1 GM TAKE 1 CA PSULE BY MOUTH TWICE A DAY for 90 days Active Ramipril 10 MG TAKE 1 CAPSULE BY MOUTH EVERY DAY for 90 Active Accu-Chek Mary Plus - USE TO TEST BLOOD SUGAR DAILY for 90 Active Aspirin Adult Low Dose 81 MG 1 tablet Or ally Once a day Active Social History Tobacco Use: Social History Observation Description Date Details (start date - stop date) Never Smoker NA - NA Tobacco Use/Smoking Question Answer Notes Patient is a nonsmoker Alcohol Screen (Audit-C) Question Answer Notes Did you have a drink containing alcohol in the p ast year? No Points 0 Interpretation Negative AUDIT-C (Standard) Question Answer Notes Did you have a drink containing alcohol in the p ast year? No Points 0 Interpretation Negative Problems Problem Type SNOMED Code ICD Code Onset Dates Problem Status W/U Status Risk Notes Problem [id number] Essential (primary) hypertension (I10) Active confirmed Problem 04291005 Hyperlipidemia, unspecified (E78.5) Active confirmed Problem Chronic kidney disease stage 3A (disorder) (148744041) Chronic kidney disease, stage 3a (N18.31) Active confirmed Vital Signs Blood pressure diastolic 80 mm Hg 05/30/2025 Height 65 in 05/30/2025 Blood pressure systolic 136 mm Hg 05/30/2025 Weight 196.2 lbs 05/30/2025 BMI 32.65 kg/m2 05/30/2025 Encounters Encounter Location Date Provider Diagnosis [address] [place] [address] 05/30/2025 Minnie Riojas Chronic kidney disease, stage 3a N18.31 ; Essential (primary) hypertension I10 and Osteopenia M85.80 [facility] [address] [place] [address] 06/14/2024 Minnie Riojas [facility] [address] [place] [address] 04/04/2025 Minnie Riojas [facility] [address] [place] [address] 04/04/2025 Efrain Aguilar Screening for breast cancer Z12.31 [address] [place] [address] 05/19/2025 Minnie Riojas Assessments Encounter Date Diagnosis (ICD Code) Assessment Notes Treatment Notes Treatment Clinical Notes Section Notes 05/30/2025 Essential (primary) hypertension (ICD-10 - I10) BP ok, continue meds 05/30/2025 Chronic kidney disease, stage 3a (ICD-10 - N18.31) continue monitor labs BP control 04/04/2025 Screening for breast cancer (ICD-10 - Z12.31) 05/30/2025 Osteopenia (ICD-10 - M85.80) Plan Of Treatment Pending Test Test Name Order Date CMP (COMPLETE METABOLIC PANEL) 3 CMP (COMPLETE METABOLIC PANEL) 4 HEMOGLOBIN A1C (GLYCO) 05/10/2024 HEMOGLOBIN A1C (GLYCO) 05/30/2025 HEMOGLOBIN A1C (GLYCO) 05/15/2023 INSULIN, TOTAL 05/10/2024 IRON, TOTAL 05/30/2025 LIPID PANEL (CHOL/TRIG/HDL/LDL) 05/10/20 24 LIPID PANEL (CHOL/TRIG/HDL/LDL) 05/30/20 25 LIPID PANEL (CHOL/TRIG/HDL/LDL) 05/15/20 23 CBC WITH DIFF 05/15/2023 CBC WITH DIFF 05/10/2024 VITAMIN D, 25 LEVEL (TOTAL) 05/15/2023 VITAMIN D, 25 LEVEL (TOTAL) 05/30/2025 Insulin Level 05/15/2023 Insulin Level 05/30/2025 STOOL OCCULT BLOOD 05/15/2023 XR DEXA BONE DENSITY 05/30/2025 THYROID PANEL (T4/TSH/FREE T3) 5 THYROID PANEL (T4/TSH/FREE T3) 3 THYROID PANEL (T4/TSH/FREE T3) 4 BI MAMMOGRAM SCREENING TOMOSYNTHESIS [place] ATERAL 04/04/2025 CMP (COMP MET SANCHEZ) w/eGFR CKD-EPI 2024 CBC WITH DIFF 05/30/2025 Insurance Providers Payer Name Payer Address Payer Phone Subscriber Number Group Number Insured Name Patient Relationship to Insured Coverage Start Date Coverage End Date [employer]AN [address] [address] [place] [address] [phone] [id number] Belia Trammell Self - patient is the insured 3 Medical (General) History Medical History History ICD Code Osteopenia M85.80 Hyperglycemia R73.9 Arthritis M19.90 Lump or mass in breast N63.0 Female stress incontinence N39.3 Hypertension I10 Hyperlipidemia E78.5 Surgical History Surgery Date(Month/Year) Ureteral Tube- took tissue flap off Hysterectomy
--- OUTSIDE RECORDS SUMMARY | 2025-05-30 14:58 | XMS_ITS | Clinical Summary ---
Author Organization [facility] Address [address] [place] [address] Care Team Providers Care Tin Recovery Worker Name Role Phone Minnie Riojas MD Unavailable [phone] Allergies No known active allergies Medications simvastatin (Zocor) 10 MG tablet TAKE 1 TABLET BY MOUTH EVERY DAY FOR 90 DAYS 05/25/2023 Active ramipril (Altace) 10 MG capsule TAKE 1 CAPSULE BY MOUTH EVERY DAY FOR 30 DAYS 05/07/2023 Active omega-3 acid ethyl esters (Lovaza) 1 g capsule Take 1 g by mouth in the morning and 1 g before bedtime. 05/01/2023 Active hydroCHLOROthia zide (HYDRODiuril) 25 MG tablet TAKE 1 TABLET BY MOUTH EVERY DAY IN THE MORNING FOR 30 DAYS 05/10/2023 Active aspirin 81 MG EC tablet Take 81 mg by mouth in the morning. Active cetirizine (ZyrTEC) 5 MG tablet Take 10 mg by mouth in the morning. Active Active Problems No known active problems Family History Relation Name Status Comments Father Mother Social History Tobacco Use Types Packs/Day Years Used Date Smoking Tobacco: Never Passive Smoke Exposure: Never Smokeless Tobacco: Never Tobacco Cessation:Counseling Given: Not Answered Alcohol Use Standard Drinks/Week Comments Never 0 (1 standard drink = 0.6 oz pur e alcohol) Comments Unknown Sex and Gender Information Value Date Recorded Sex Assigned at Not on file Legal Sex Female 5:28 PM EDT Gender Identity Not on file Sexual Orientation Not on file Last Filed Vital Signs Vital Sign Reading Time Taken Comments Blood Pressure 140/78 04/30/2024 9:42 AM EDT Pulse 80 04/30/2024 9:42 AM EDT Temperature 36.3 C (97.4 F) 04/30/2024 9:42 AM EDT Respiratory Rate - - Oxygen Saturation 97% 04/30/2024 9:42 AM EDT Inhaled Oxygen Concentration - - Weight 87.1 kg (192 lb) 04/30/2024 9:42 AM EDT Height - - Body Mass Index - - Plan of Treatment Not on file Insurance [employer] [facility] [employer] ADVANTAGE Care Teams Tin Recovery Worker Relationship Specialty Start Date End Date Minnie Riojas MD [address] [place], [place] [id number] Referring Physician Family Medicine 06/09/23
--- NOTE | 2025-05-30 15:03 | MM_ITS ---
Patient Name: ALAN RAO MR#: [id number] : 1950 Exam Date: 05/30/2025 Ordering Doctor: DR JOANNE WOO . RADIOLOGY REPORT PROCEDURE: MM TOMOSYNTHESIS SCREENING BI COMPARISON: MM TOMOSYNTHESIS SCREENING BI, 04/04/2024. MG MAMM SCREEN 3D [place] CAD, 01/27/2022. MG MAMM SCREEN [place] W CAD, 09/25/2020. MG MAMM [place] SCRN W CAD DIG, 02/05/2010. INDICATIONS: screening Calculator Name NCI Breast Cancer Risk Assessment Tool 5 Year Breast Cancer Risk 2.30% Lifetime Breast Cancer Risk 6.00% Personal Breast Cancer No Personal Ovarian Cancer No Treatments None Family Cancers Grandfather-maternal with lung & esophageal cancer at age 40. LOCATION: [facility] BREAST COMPOSITION: The breasts are heterogeneously dense, which may obscure small masses. FINDINGS: RIGHT BREAST: No significant suspicious finding. Benign-appearing calcifications are present. Similar focal asymmetries are noted. Benign-appearing lymph nodes are noted along the chest wall. LEFT BREAST: No significant suspicious finding. Benign-appearing calcifications are present. DIAGNOSTIC CATEGORY 2--BENIGN FINDING: RECOMMENDATIONS: ROUTINE MAMMOGRAM AND CLINICAL EVALUATION IN 12 MONTHS. PLEASE NOTE: A NORMAL MAMMOGRAM DOES NOT EXCLUDE THE POSSIBILITY OF BREAST CANCER. A CLINICALLY SUSPICIOUS PALPABLE LUMP SHOULD BE BIOPSIED. Dictated by: Jean Claude Santacruz MD on 05/30/2025 at 16:10 Approved by: Jean Claude Santacruz MD on 05/30/2025 at 16:13
--- OUTSIDE RECORDS SUMMARY | 2025-05-30 16:07 | XMS_ITS | CCD ---
Author Organization [facility] Care Team Providers Care Pyrotechnist Name Role Phone DR JOANNE WOO Attending [...] BASO # 0.1 103/ul Normal 0.0-0.1 [facility] Comment on above: Performed By: #### C BC #### [facility] [address] [place] [address] Dr. Jen Spear Basophils/100 WBC (Bld) 0.9 % Normal 0.2-2.0 [facility] Comment on above: Performed By: #### C BC #### [facility] [address] [place] [address] Dr. Jen Spear EO # 0.1 103/ul Normal 0.0-0.7 [facility] Comment on above: Performed By: #### C BC #### [facility] [address] [place] [address] Dr. Jen Spear Eosinophils/100 WBC (Bld) 1.3 % Normal 0.9-7.0 [facility] Comment on above: Performed By: #### C BC #### [facility] [address] [place] [address] Dr. Jen Spear Erythrocyte distribution width (RBC) [Ratio] 11.6 % Normal 11.0-15.0 [facility] Comment on above: Performed By: #### C BC #### [facility] [address] [place] [address] Dr. Jen Spear Hematocrit (Bld) [Volume fraction] 42.0 % Normal 36.0-48.0 [facility] Comment on above: Performed By: #### C BC #### [facility] [address] [place] [address] Dr. Jen Spear Hemoglobin (Bld) [Mass/Vol] 14.2 g/dL Normal 12.0-16.0 [facility] Comment on above: Performed By: #### C BC #### [facility] [address] [place] [address] Dr. Jen Spear IG # 0.03 10e3/ul Normal 0.00-0.03 [facility] Comment on above: Performed By: #### C BC #### [facility] [address] [place] [address] Dr. Jen Spear IG % 0.3 % Normal 0.0-0.5 [facility] Comment on above: Performed By: #### C BC #### [facility] [address] [place] [address] Dr. Jen Spear LYMPH # 4.1 103/ul Critically high 1.2-3.8 [facility] Comment on above: Performed By: #### C BC #### [facility] [address] [place] [address] Dr. Jen Spear Lymphocytes/100 WBC (Bld) 44.7 % Normal 20.5-60.0 [facility] Comment on above: Performed By: #### C BC #### [facility] [address] [place] [address] Dr. Jen Spear MANUAL DIFF REQ NO Normal [facility] Comment on above: Performed By: #### C BC #### [facility] [address] [place] [address] Dr. Jen Spear MCH (RBC) [Entitic mass] 31.5 pg Normal 26.7-34.0 [facility] Comment on above: Performed By: #### C BC #### [facility] [address] [place] [address] Dr. Jen Spear MCHC (RBC) [Mass/Vol] 33.8 g/dL Normal 29.9-35.2 [facility] Comment on above: Performed By: #### C BC #### [facility] [address] [place] [address] Dr. Jen Spear MCV (RBC) [Entitic vol] 93.1 fL Normal 81.0-99.0 [facility] Comment on above: Performed By: #### C BC #### [facility] [address] [place] [address] Dr. Jen Spear MONO # 0.5 103/ul Normal 0.3-0.8 [facility] Comment on above: Performed By: #### C BC #### [facility] [address] [place] [address] Dr. Jen Spear Monocytes/100 WBC (Bld) 5.3 % Normal 1.7-12.0 [facility] Comment on above: Performed By: #### C BC #### [facility] [address] [place] [address] Dr. Jen Spear NEUT # 4.4 103/ul Normal 1.4-6.5 [facility] Comment on above: Performed By: #### C BC #### [facility] [address] [place] [address] Dr. Jen Spear Neutrophils/100 WBC (Bld) 47.5 % Normal 43.0-75.0 [facility] Comment on above: Performed By: #### C BC #### [facility] [address] [place] [address] Dr. Jen Spear Platelet mean volume (Bld) [Entitic vol] 10.2 fL Normal 9.5-13.5 [facility] Comment on above: Performed By: #### C BC #### [facility] [address] [place] [address] Dr. Jen Spear PLT 280 103/ul Normal 150-450 [facility] Comment on above: Performed By: #### C BC #### [facility] [address] [place] [address] Dr. Jen Spear RBC 4.51 106/ul Normal 4.20-5.40 [facility] Comment on above: Performed By: #### C BC #### [facility] [address] [place] [address] Dr. Jen Spear WBC 9.2 103/ul Normal 4.0-11.0 [facility] Comment on above: Performed By: #### C BC #### [facility] [address] [place] [address] Dr. Jen Spear GLYCOHEMOGLOBIN A1Con 2021 ADA RECOMMENDATION SEE BELOW Normal [facility] Comment on above: Result Comment: ADA RECOMMENDED LIMIT 4.0 - 6.0 ADA THERAPEUTIC TARGET < 7.0 ACTION SUGGESTED > 7.0 Performed By: #### A 1C #### [facility] [address] [place] [address] Dr. Jen Spear Glucose [Mass/Vol] 123 mg/dL Normal [facility] Comment on above: Performed By: #### A 1C #### [facility] [address] [place] [address] Dr. Jen Spear HbA1c (Bld) [Mass fraction] 5.9 % Normal 4.5-6.2 [facility] Comment on above: Performed By: #### A 1C #### [facility] [address] [address] [address] Jen Spear LIPID PROFILEon 2022 CHOL-HDL RATIO NORM SEE BELOW Normal [facility] Comment on above: Result Comment: 3.3 - 4.4 LOW RISK 4.4 - 7.1 AVERAGE RISK 7.1 - 11.0 MODERATE RISK >11.0 HIGH RISK Performed By: #### L IPID, CMP #### [facility] [address] [address] [address] Jen Spear Cholesterol [Mass/Vol] 182 mg/dL Normal <=200 [facility] Comment on above: Performed By: #### L IPID, CMP #### [facility] [address] [address] [address] Jen Spear Cholesterol in HDL [Mass/Vol] 64 mg/dL Critically high 40-60 [facility] Comment on above: Performed By: #### L IPID, CMP #### [facility] [address] [address] [address] Jen Spear Cholesterol in LDL [Mass/Vol] 89.4 mg/dL Normal [facility] Comment on above: Performed By: #### L IPID, CMP #### [facility] [address] [address] [address] Jen Spear Cholesterol.total/Cho lesterol in HDL [Mass ratio] 2.8 {ratio} Normal [facility] Comment on above: Performed By: #### L IPID, CMP #### [facility] [address] [address] [address] Jen Spear HDL NORMAL > or = 60 mg/dl - LO W CARDIOVASCULAR RISK <40 mg/dl - HIGH CARDIOVASCULAR RISK Normal [facility] Comment on above: Performed By: #### L IPID, CMP #### [facility] [address] [address] [address] Jen Spear LDL CALC NORMAL SEE BELOW Normal [facility] Comment on above: Result Comment: <100 mg/dl OPTIMAL 100 - 129 mg/dl NEAR OR ABOVE OPTIMAL 130 - 159 mg/dl BORDERLINE HIGH 160 - 189 mg/dl HIGH >190 mg/dl VERY HIGH Performed By: #### L IPID, CMP #### [facility] [address] [place] [address] Dr. Jen Spear Triglyceride [Mass/Vol] 143 mg/dL Normal <=150 [facility] Comment on above: Performed By: #### L IPID, CMP #### [facility] [address] [place] [address] Dr. Jen Spear VLDL CALC 28.6 mg/dL Normal [facility] Comment on above: Performed By: #### L IPID, CMP #### [facility] [address] [place] [address] Dr. Jen Spear PROF 14(COMP METB)on 022 Albumin [Mass/Vol] 3.8 g/dL Normal 3.4-5.0 [facility] Comment on above: Performed By: #### L IPID, CMP #### [facility] [address] [place] [address] Dr. Jen Spear Albumin/Globulin [Mass ratio] 1.1 {ratio} Normal [facility] Comment on above: Performed By: #### L IPID, CMP #### [facility] [address] [place] [address] Dr. Jen Spear ALP [Catalytic activity/Vol] 90 U/L Normal 46-116 [facility] Comment on above: Performed By: #### L IPID, CMP #### [facility] [address] [place] [address] Dr. Jen Spear ALT [Catalytic activity/Vol] 37 U/L Normal 14-59 [facility] Comment on above: Performed By: #### L IPID, CMP #### [facility] [address] [place] [address] Dr. Jen Spear Anion gap [Moles/Vol] 9.8 mmol/L Normal [facility] Comment on above: Performed By: #### L IPID, CMP #### [facility] [address] [address] [address] Jen Spear AST [Catalytic activity/Vol] 23 U/L Normal 15-37 [facility] Comment on above: Performed By: #### L IPID, CMP #### [facility] [address] [address] [address] Jen Spear Bilirubin [Mass/Vol] 0.8 mg/dL Normal 0.2-1.0 [facility] Comment on above: Performed By: #### L IPID, CMP #### [facility] [address] [address] [address] Jen Spear Calcium [Mass/Vol] 9.3 mg/dL Normal 8.5-10.1 [facility] Comment on above: Performed By: #### L IPID, CMP #### [facility] [address] [place] [address] Dr. Jen Spear Chloride [Moles/Vol] 104 mmol/L Normal 98-107 [facility] Comment on above: Performed By: #### L IPID, CMP #### [facility] [address] [address] [address] Jen Spear CO2 [Moles/Vol] 31.0 mmol/L Normal 21.0-32.0 [facility] Comment on above: Performed By: #### L IPID, CMP #### [facility] [address] [place] [address] Dr. Jen Spear Creatinine [Mass/Vol] 1.12 mg/dL Critically high 0.55-1.02 [facility] Comment on above: Performed By: #### L IPID, CMP #### [facility] [address] [place] [address] Dr. Jen Spear EGFR-AF [place] 58 mL/min/1.73m2 Critically low >=60 [facility] Comment on above: Performed By: #### L IPID, CMP #### [facility] [address] [place] [address] Dr. Jen Spear EGFR-NON AF [place] 48 mL/min/1.73m2 Critically low >=60 [facility] Comment on above: Performed By: #### L IPID, CMP #### [facility] [address] [address] [address] Jen Spear Globulin (S) [Mass/Vol] 3.6 g/dL Normal [facility] Comment on above: Performed By: #### L IPID, CMP #### [facility] [address] [address] [address] Jen Spear Glucose [Mass/Vol] 102 mg/dL Normal 74-106 [facility] Comment on above: Performed By: #### L IPID, CMP #### [facility] [address] [address] [address] Jen Spear Potassium [Moles/Vol] 3.8 mmol/L Normal 3.5-5.1 [facility] Comment on above: Performed By: #### L IPID, CMP #### [facility] [address] [place] [address] Dr. Jen Spear Protein [Mass/Vol] 7.4 g/dL Normal 6.4-8.2 [facility] Comment on above: Performed By: #### L IPID, CMP #### [facility] [address] [address] [address] Jen Spear Sodium [Moles/Vol] 141 mmol/L Normal 136-145 [facility] Comment on above: Performed By: #### L IPID, CMP #### [facility] [address] [address] [address] Jen Spear Urea nitrogen [Mass/Vol] 18.0 mg/dL Normal 7.0-18.0 [facility] Comment on above: Performed By: #### L IPID, CMP #### [facility] [address] [address] [address] Jen Spear Urea nitrogen/Creatinine [Mass ratio] 16.1 mg/mg Normal [facility] Comment on above: Performed By: #### L IPID, CMP #### [facility] [address] [address] [address] Jen Spear MG MAMM SCREEN 3D [place] CADon 01-27-2022 MG MAMM SCREEN 3D [place] CAD Patient: NOFFSINGER, ALAN A. Exam Date: 01/27/2022 : 1950 Gender:F Ordering : DR JOANNE WOO . Admission #: [id number] Family : Order #: [id number] CLICK HERE TO VIEW EXAM RADIOLOGY REPORT [...] esophageal cancer at age 42. LOCATION: [facility] BREAST COMPOSITION: Heterogeneously dense,which may obscure small [...] Snow M.D. on 01/28/2022 at 13:38 Normal [facility] Encounters Encounter Date Encounter Type Care Provider Facility Start: 04-30-2024 End: 04-30-2024 ambulatory KAREEM BAUTISTA Not Available Start: 2022 End: 07-02-2022 ambulatory KEN HOFF Facility:[facility] Start: 01-27-2022 End: 01-28-[address] JOANNE WOO Facility:[facility] Payers Date Payer Category Payer Medicare [id number] 1950 Unknown [id number] 1950 Unknown [id number] 1950 Unknown [id number] Summary Purpose Family History No Family History Records FoundNo Family History Records Found Advance Directives No Advanced Directives Records FoundNo Advanced Directives Records Found Additional Source Comments INFORMATION SOURCE (unrecogn ized section and content) DATE CREATED AUTHOR 07/13/2022 [facility] DATE CREATED AUTHOR AUTHOR'S HALEIGH BOWEN 05/03/2024 [facility] EPIC FOR RECORDS PERTAINING TO [...] BE BASED ON THE PRIMARY CLINICAL RECORDS. [facility] [employer] provides no warranty or guarantee of the accuracy or completeness of information in this document.
== END 2025-05-30 14:55 | disposition home or self-care (01) ==
LOC: MAMMO 14:55
PROVIDERS: PCP Nurse Practitioner Family; Visit Provider Family Medicine
DX: Z12.31 Encounter for screening mammogram for malignant neoplasm of breast (principal); Z80.1 Family history of malignant neoplasm of trachea, bronchus and lung; Z80.8 Family history of malignant neoplasm of other organs or systems
CPT/HCPCS: 77063; 77067

== ENCOUNTER 2025-06-27 07:53 | Outpatient (OUT) | payer MEDICARE, SELFPAY ==
--- OUTSIDE RECORDS SUMMARY | 2025-06-27 07:59 | XMS_ITS | CCD ---
Author Organization [facility] Care Team Providers Care Marketing Analyst Name Role Phone DR JOANNE WOO Attending [...] BASO # 0.1 103/ul Normal 0.0-0.1 [facility] Comment on above: Performed By: #### C BC #### [facility] [address] [place] [address] Dr. Jen Spear Basophils/100 WBC (Bld) 0.9 % Normal 0.2-2.0 [facility] Comment on above: Performed By: #### C BC #### [facility] [address] [place] [address] Dr. Jen Spear EO # 0.1 103/ul Normal 0.0-0.7 [facility] Comment on above: Performed By: #### C BC #### [facility] [address] [place] [address] Dr. Jen Spear Eosinophils/100 WBC (Bld) 1.3 % Normal 0.9-7.0 [facility] Comment on above: Performed By: #### C BC #### [facility] [address] [place] [address] Dr. Jen Spear Erythrocyte distribution width (RBC) [Ratio] 11.6 % Normal 11.0-15.0 [facility] Comment on above: Performed By: #### C BC #### [facility] [address] [place] [address] Dr. Jen Spear Hematocrit (Bld) [Volume fraction] 42.0 % Normal 36.0-48.0 [facility] Comment on above: Performed By: #### C BC #### [facility] [address] [place] [address] Dr. Jen Spear Hemoglobin (Bld) [Mass/Vol] 14.2 g/dL Normal 12.0-16.0 [facility] Comment on above: Performed By: #### C BC #### [facility] [address] [place] [address] Dr. Jen Spear IG # 0.03 10e3/ul Normal 0.00-0.03 [facility] Comment on above: Performed By: #### C BC #### [facility] [address] [place] [address] Dr. Jen Spear IG % 0.3 % Normal 0.0-0.5 [facility] Comment on above: Performed By: #### C BC #### [facility] [address] [place] [address] Dr. Jen Spear LYMPH # 4.1 103/ul Critically high 1.2-3.8 [facility] Comment on above: Performed By: #### C BC #### [facility] [address] [place] [address] Dr. Jen Spera Lymphocytes/100 WBC (Bld) 44.7 % Normal 20.5-60.0 [facility] Comment on above: Performed By: #### C BC #### [facility] [address] [place] [address] Dr. Jen Spear MANUAL DIFF REQ NO Normal [facility] Comment on above: Performed By: #### C BC #### [facility] [address] [place] [address] Dr. Jen Spear MCH (RBC) [Entitic mass] 31.5 pg Normal 26.7-34.0 [facility] Comment on above: Performed By: #### C BC #### [facility] [address] [place] [address] Dr. Jen Spear MCHC (RBC) [Mass/Vol] 33.8 g/dL Normal 29.9-35.2 [facility] Comment on above: Performed By: #### C BC #### [facility] [address] [place] [address] Dr. Jen Spear MCV (RBC) [Entitic vol] 93.1 fL Normal 81.0-99.0 [facility] Comment on above: Performed By: #### C BC #### [facility] [address] [place] [address] Dr. Jen Spear MONO # 0.5 103/ul Normal 0.3-0.8 [facility] Comment on above: Performed By: #### C BC #### [facility] [address] [place] [address] Dr. Jen Spear Monocytes/100 WBC (Bld) 5.3 % Normal 1.7-12.0 [facility] Comment on above: Performed By: #### C BC #### [facility] [address] [place] [address] Dr. Jen Spear NEUT # 4.4 103/ul Normal 1.4-6.5 [facility] Comment on above: Performed By: #### C BC #### [facility] [address] [place] [address] Dr. Jen Spear Neutrophils/100 WBC (Bld) 47.5 % Normal 43.0-75.0 [facility] Comment on above: Performed By: #### C BC #### [facility] [address] [place] [address] Dr. Jen Spear Platelet mean volume (Bld) [Entitic vol] 10.2 fL Normal 9.5-13.5 [facility] Comment on above: Performed By: #### C BC #### [facility] [address] [place] [address] Dr. Jen Spear PLT 280 103/ul Normal 150-450 [facility] Comment on above: Performed By: #### C BC #### [facility] [address] [place] [address] Dr. Jen Spear RBC 4.51 106/ul Normal 4.20-5.40 [facility] Comment on above: Performed By: #### C BC #### [facility] [address] [place] [address] Dr. Jen Spear WBC 9.2 103/ul Normal 4.0-11.0 [facility] Comment on above: Performed By: #### C BC #### [facility] [address] [place] [address] Dr. Jen Spear GLYCOHEMOGLOBIN A1Con 2021 ADA RECOMMENDATION SEE BELOW Normal [facility] Comment on above: Result Comment: ADA RECOMMENDED LIMIT 4.0 - 6.0 ADA THERAPEUTIC TARGET < 7.0 ACTION SUGGESTED > 7.0 Performed By: #### A 1C #### [facility] [address] [place] [address] Dr. Jen Spear Glucose [Mass/Vol] 123 mg/dL Normal [facility] Comment on above: Performed By: #### A 1C #### [facility] [address] [place] [address] Dr. Jen Spear HbA1c (Bld) [Mass fraction] 5.9 % Normal 4.5-6.2 [facility] Comment on above: Performed By: #### A 1C #### [facility] [address] [address] [address] Jen Spear LIPID PROFILEon 2022 CHOL-HDL RATIO NORM SEE BELOW Normal [facility] Comment on above: Result Comment: 3.3 - 4.4 LOW RISK 4.4 - 7.1 AVERAGE RISK 7.1 - 11.0 MODERATE RISK >11.0 HIGH RISK Performed By: #### L IPID, CMP #### [facility] [address] [address] [address] Jen Spear Cholesterol [Mass/Vol] 182 mg/dL Normal <=200 [facility] Comment on above: Performed By: #### L IPID, CMP #### [facility] [address] [address] [address] Jen Spear Cholesterol in HDL [Mass/Vol] 64 mg/dL Critically high 40-60 [facility] Comment on above: Performed By: #### L IPID, CMP #### [facility] [address] [address] [address] Jen Spear Cholesterol in LDL [Mass/Vol] 89.4 mg/dL Normal [facility] Comment on above: Performed By: #### L IPID, CMP #### [facility] [address] [address] [address] Jen Spear Cholesterol.total/Cho lesterol in HDL [Mass ratio] 2.8 {ratio} Normal [facility] Comment on above: Performed By: #### L IPID, CMP #### [facility] [address] [address] [address] Jen Spear HDL NORMAL > or = 60 mg/dl - LO W CARDIOVASCULAR RISK <40 mg/dl - HIGH CARDIOVASCULAR RISK Normal [facility] Comment on above: Performed By: #### L IPID, CMP #### [facility] [address] [address] [address] Jen Spear LDL CALC NORMAL SEE BELOW Normal [facility] Comment on above: Result Comment: <100 mg/dl OPTIMAL 100 - 129 mg/dl NEAR OR ABOVE OPTIMAL 130 - 159 mg/dl BORDERLINE HIGH 160 - 189 mg/dl HIGH >190 mg/dl VERY HIGH Performed By: #### L IPID, CMP #### [facility] [address] [place] [address] Dr. Jen Spear Triglyceride [Mass/Vol] 143 mg/dL Normal <=150 [facility] Comment on above: Performed By: #### L IPID, CMP #### [facility] [address] [place] [address] Dr. Jen Spear VLDL CALC 28.6 mg/dL Normal [facility] Comment on above: Performed By: #### L IPID, CMP #### [facility] [address] [place] [address] Dr. Jen Spear PROF 14(COMP METB)on 022 Albumin [Mass/Vol] 3.8 g/dL Normal 3.4-5.0 [facility] Comment on above: Performed By: #### L IPID, CMP #### [facility] [address] [place] [address] Dr. Jen Spear Albumin/Globulin [Mass ratio] 1.1 {ratio} Normal [facility] Comment on above: Performed By: #### L IPID, CMP #### [facility] [address] [place] [address] Dr. Jen Spear ALP [Catalytic activity/Vol] 90 U/L Normal 46-116 [facility] Comment on above: Performed By: #### L IPID, CMP #### [facility] [address] [place] [address] Dr. Jen Spear ALT [Catalytic activity/Vol] 37 U/L Normal 14-59 [facility] Comment on above: Performed By: #### L IPID, CMP #### [facility] [address] [place] [address] Dr. Jen Spear Anion gap [Moles/Vol] 9.8 mmol/L Normal [facility] Comment on above: Performed By: #### L IPID, CMP #### [facility] [address] [address] [address] Jen Spear AST [Catalytic activity/Vol] 23 U/L Normal 15-37 [facility] Comment on above: Performed By: #### L IPID, CMP #### [facility] [address] [address] [address] Jen Spear Bilirubin [Mass/Vol] 0.8 mg/dL Normal 0.2-1.0 [facility] Comment on above: Performed By: #### L IPID, CMP #### [facility] [address] [address] [address] Jen Spear Calcium [Mass/Vol] 9.3 mg/dL Normal 8.5-10.1 [facility] Comment on above: Performed By: #### L IPID, CMP #### [facility] [address] [place] [address] Dr. Jen Spear Chloride [Moles/Vol] 104 mmol/L Normal 98-107 [facility] Comment on above: Performed By: #### L IPID, CMP #### [facility] [address] [address] [address] Jen Spear CO2 [Moles/Vol] 31.0 mmol/L Normal 21.0-32.0 [facility] Comment on above: Performed By: #### L IPID, CMP #### [facility] [address] [place] [address] Dr. Jen Spear Creatinine [Mass/Vol] 1.12 mg/dL Critically high 0.55-1.02 [facility] Comment on above: Performed By: #### L IPID, CMP #### [facility] [address] [place] [address] Dr. Jen Spear EGFR-AF MALAYSIAN 58 mL/min/1.73m2 Critically low >=60 [facility] Comment on above: Performed By: #### L IPID, CMP #### [facility] [address] [place] [address] Dr. Jen Spear EGFR-NON AF MALAYSIAN 48 mL/min/1.73m2 Critically low >=60 [facility] Comment on above: Performed By: #### L IPID, CMP #### [facility] [address] [address] [address] Jen Spear Globulin (S) [Mass/Vol] 3.6 g/dL Normal [facility] Comment on above: Performed By: #### L IPID, CMP #### [facility] [address] [address] [address] Jen Spear Glucose [Mass/Vol] 102 mg/dL Normal 74-106 [facility] Comment on above: Performed By: #### L IPID, CMP #### [facility] [address] [address] [address] Jen Spear Potassium [Moles/Vol] 3.8 mmol/L Normal 3.5-5.1 [facility] Comment on above: Performed By: #### L IPID, CMP #### [facility] [address] [place] [address] Dr. Jen Spear Protein [Mass/Vol] 7.4 g/dL Normal 6.4-8.2 [facility] Comment on above: Performed By: #### L IPID, CMP #### [facility] [address] [address] [address] Jen Spear Sodium [Moles/Vol] 141 mmol/L Normal 136-145 [facility] Comment on above: Performed By: #### L IPID, CMP #### [facility] [address] [address] [address] Jen Spear Urea nitrogen [Mass/Vol] 18.0 mg/dL Normal 7.0-18.0 [facility] Comment on above: Performed By: #### L IPID, CMP #### [facility] [address] [address] [address] Jen Spear Urea nitrogen/Creatinine [Mass ratio] 16.1 mg/mg Normal [facility] Comment on above: Performed By: #### L IPID, CMP #### [facility] [address] [address] [address] Jen Spear MG MAMM SCREEN 3D [place] CADon 01-27-2022 MG MAMM SCREEN 3D [place] CAD Patient: NOFFSINGER, ALAN A. Exam Date: 01/27/2022 : 1950 Gender:F Ordering : DR JOANNE WOO . Admission #: [id number] Family : Order #: [id number] CLICK HERE TO VIEW EXAM RADIOLOGY REPORT [...] esophageal cancer at age 42. LOCATION: [facility] BREAST COMPOSITION: Heterogeneously dense,which may obscure [...] Snow M.D. on 01/28/2022 at 13:38 Normal [facility] Encounters Encounter Date Encounter Type Care Provider Facility Start: 04-30-2024 End: 04-30-2024 ambulatory KAREEM BAUTISTA Not Available Start: 2022 End: 07-02-2022 ambulatory KEN HOFF Facility:[facility] Start: 01-27-2022 End: 01-28-[address] JOANNE WOO Facility:[facility] Payers Date Payer Category Payer Medicare [id number] 1950 Unknown [id number] 1950 Unknown [id number] 1950 Unknown [id number] Summary Purpose Family History No Family History Records FoundNo Family History Records Found Advance Directives No Advanced Directives Records FoundNo Advanced Directives Records Found Additional Source Comments INFORMATION SOURCE (unrecogn ized section and content) DATE CREATED AUTHOR 07/13/2022 [facility] DATE CREATED AUTHOR AUTHOR'S HALEIGH BOWEN 05/03/2024 [facility] EPIC FOR RECORDS PERTAINING [...] BE BASED ON THE PRIMARY CLINICAL RECORDS. [facility] [employer] provides no warranty or guarantee of the accuracy or completeness of information in this document.
[2025-06-27 08:25] LABS: Hematocrit 43.2 % (36.0-48.0); Hemoglobin 14.7 g/dL (12.0-16.0); Immature Granulocytes Abs Auto 0.02 10^3/uL (0.00-0.03); Immature Granulocytes Pct Auto 0.2 % (0.0-0.5); Lymphocytes Absolute Auto 3.4 10^3/uL (1.2-3.8); Mean Corpuscular HGB Conc 34.0 g/dL (29.9-35.2); Mean Corpuscular Hemoglobin 31.6 pg (26.7-34.0); Mean Corpuscular Volume 92.9 fL (81.0-99.0); Platelet Count 250 10^3/uL (150-450); Red Blood Count 4.65 10^6/uL (4.20-5.40); White Blood Count 8.6 10^3/uL (4.0-11.0)
[2025-06-27 09:02] LABS: Alanine Aminotransferase 49 U/L (14-59); Albumin Globulin Ratio 1.0; Albumin Level 3.9 g/dL (3.4-5.0); Alkaline Phosphatase 99 U/L (46-116); Anion Gap 14.6; Aspartate Amino Transferase 28 U/L (15-37); Blood Urea Nitrogen 17.0 mg/dL (7.0-18.0); Calcium 9.4 mg/dL (8.5-10.1); Carbon Dioxide 27.5 mmol/L (21.0-32.0); Chloride 105 mmol/L (98-107); Cholesterol 198 mg/dL (<=200); Estimated GFR (African America >60 (>=60 mL/min/1.73m^2); Estimated GFR (Non-African Ame 59 (>=60 mL/min/1.73m^2); Free T3 2.33 pg/mL (2.18-3.98); Globulin 4.0 g/dL; Glucose 115 mg/dL (74-106); HDL Cholesterol 67 mg/dL (40-60); Potassium 4.1 mmol/L (3.5-5.1); Sodium 143 mmol/L (136-145); Thyroid Stimulating Hormone 2.240 uIU/mL (0.358-3.740); Total Protein 7.9 g/dL (6.4-8.2); Triglycerides 122 mg/dL (<=150); VLDL CHOLESTEROL 24.4 mg/dL
[2025-06-27 09:27] LABS: Iron 76.0 ug/dL (50.0-170.0)
== END 2025-06-27 07:54 | disposition home or self-care (01) ==
LOC: LAB 07:57
PROVIDERS: PCP Nurse Practitioner Family; Visit Provider Nurse Practitioner Family
DX: I10 Essential (primary) hypertension (principal); E78.5 Hyperlipidemia, unspecified; R73.09 Other abnormal glucose; D64.9 Anemia, unspecified; R53.83 Other fatigue; E55.9 Vitamin D deficiency, unspecified
CPT/HCPCS: 36415; 80053; 80061; 82306; 83036; 83525; 83540; 84436; 84443; 84481; 85025